=== PATIENT | female | born 1985 | race American Indian/Alaskan Native ===

== ENCOUNTER 2020-11-07 11:29 | Outpatient (CLI) | payer MEDICAID ==
[2020-11-07] MEDS ORDERED: LACTATED RINGERS 1,000 ML IV ONE (12:08)
[2020-11-07 12:09] VITALS: BP 124/86
[2020-11-07 12:41] LABS: Bacteria,Urine 1+ /HPF (Negative); Bilirubin,Urine NEG (Negative); Blood,Urine NEG (Negative); Color,Urine Yellow (Yellow); Protein,Urine <15 mg/dL mg/dL (Negative); Urobilinogen,Urine < 2.0 mg/dL (<2.0)
== END 2020-11-07 13:10 | disposition home or self-care (01) ==
LOC: TRG 11:29 → APU 11:29 → TRG 13:10
DX: Z34.93 Encounter for supervision of normal pregnancy, unspecified, third trimester (principal); Z3A.28 28 weeks gestation of pregnancy
CPT/HCPCS: 59025; 81001